=== PATIENT | female | born 2000 | race Two or more races ===

== ENCOUNTER 2023-07-05 02:27 | Emergency (ER) | payer OTHER ==
[~2023-07-05] VITALS: Ht 157.5 cm; Wt 49.9 kg
[2023-07-05] MEDS ORDERED: IBUprofen 400 MG TABLET PO STA (05:24)
== END 2023-07-05 05:36 | disposition home or self-care (01) ==
LOC: ER 02:28
DX: M54.50 Low back pain, unspecified (principal); V49.9XXA Car occupant (driver) (passenger) injured in unspecified traffic accident, initial encounter; Y93.89 Activity, other specified; Y92.89 Other specified places as the place of occurrence of the external cause; Y99.8 Other external cause status